=== PATIENT | male | born 1990 ===

== ENCOUNTER 2021-09-09 14:24 | Emergency (ER) | payer OTHER, SELFPAY ==
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
[2021-09-09 14:36] VITALS: BP 143/91; PULSE 114; RESP 14; TEMP 36.9; O2SAT 99
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
[2021-09-09] MEDS: IBUPROFEN 600 MG TABLET PO (17:02)
== END 2021-09-09 17:58 | disposition home or self-care (01) ==
LOC: ANHED 17:50
PROVIDERS: Emergency Provider Emergency Medicine; PCP Family Medicine
DX: S16.1XXA Strain of muscle, fascia and tendon at neck level, initial encounter (principal); S00.93XA Contusion of unspecified part of head, initial encounter; V49.40XA Driver injured in collision with unspecified motor vehicles in traffic accident, initial encounter
CPT/HCPCS: 70450; 72125; 99284; A9270

== ENCOUNTER 2021-10-18 17:18 | Emergency (ER) | payer OTHER, SELFPAY ==
[2021-10-18 17:29] VITALS: BP 155/89; PULSE 86; RESP 16; TEMP 36.9; O2SAT 100
--- NOTE | 2021-10-18 17:35 | ED.SKABFB ---
HPI - Skin/Abscess/Foreign Bdy General Chief complaint: Skin/Abscess/Foreign Body Stated complaint: Lip Pain Time Seen by Provider: 10/18/21 17:32 Source: patient, RN notes reviewed and old records reviewed Mode of arrival: ambulatory Limitations: no limitations History of Present Illness HPI narrative: 30-year-old male presents to the [facility] with a left lower lip swelling. States he bit his lip a couple weeks ago thought it was getting better but his gradually gotten worse. No treatment prior to arrival Related Data Home Medications Medication Instructions Recorded Confirmed bupropion HCl 300 mg PO DAILY 10/18/21 10/18/21 buspirone 15 mg PO DAILY 10/18/21 10/18/21 clonidine HCl 0.1 mg PO DAILY 10/18/21 10/18/21 lamotrigine 150 mg PO DAILY 10/18/21 10/18/21 sertraline 100 mg PO DAILY 10/18/21 10/18/21 Allergies Allergy/AdvReac Type Severity Reaction Status Date / Time No Known Allergies Allergy Verified 10/18/21 17:35 Review of Systems Review of Systems: All systems reviewed & are unremarkable except as noted in HPI and below Constitutional: Constitutional: Reports no additional constitutional complaints, Denies chills and Denies fever(s) Eyes: Eyes: Reports no additional eye complaints ENT: Reports as per HPI Comments: Swollen bottom lip Cardiovascular: Cardiovascular: Reports no additional cardiovascular complaints Respiratory: Respiratory: Reports no additional respiratory complaints Gastrointestinal: Gastrointestinal: Reports no additional gastrointestinal complaints Musculoskeletal: Musculoskeletal: Reports no additional musculoskeletal complaints Integumentary/Breasts: Skin/Breast: Reports system reviewed and no additional complaints, except as docu Neurologic: Reports system reviewed and no additional complaints, except as documented Psychiatric: Psychiatric: Reports no additional psychiatric complaints Allergic/Immunologic: Allergic/Immunologic: Reports no additional allergic/immunologic complaints [facility] Past Medical History Medical History Patient denies significant medical history Social History Social History Smoking status: Never smoker Comments At the time of my signature, I reviewed and agree with the nursing past medical, surgical, social, and family history. There is no relevant family history pertinent to the patient complaint. Exam Const: General: healthy appearing, no acute distress and alert Nutritional Appearance: well nourished Orientation/consciousness: patient oriented x3 Limitations: no limitations HENMT: Head: normal to inspection Ears: external ears normal, TM's normal bilaterally and EAC's normal Nose image: 1. Inside bottom lip, ulceration noted, discoloration, redness and swelling noted Mouth: Yes oropharynx normal Throat: posterior oropharynx normal Eyes: Pupils: Equal, round and reactive pupils present Neck: Neck: normal visual inspection, no lymphadenopathy and no meningeal signs Chest: Chest palpation & inspection: normal inspection of the chest Resp: Effort & Inspection: normal respiratory effort and no use of accessory muscles Auscultation: clear to auscultation bilaterally, no crackles, no rales, no rhonchi and no wheezes Cardio: Rate: regular rate Rhythm: regular rhythm GI: GI Palp: Yes Soft to palpation and No Tenderness to palpation present (GI) Back/Spine/Pelvis: Back: no CVA tenderness Skin: General skin exam: normal color Rashes: no rashes Wounds: no wounds Neuro: General: patient oriented x3, moves all extremities, no meningeal signs and no focal motor deficits Cranial nerves: Yes Equal, round and reactive pupils present Speech: normal speech Gait exam (Neuro): Normal gait present Extrem: General: normal to inspection Psych: Appearance: grossly normal and well kempt Mental Status: mental status grossly normal Affect: n
== END 2021-10-18 17:40 | disposition home or self-care (01) ==
PROVIDERS: Emergency Provider Nurse Practitioner
DX: K12.0 Recurrent oral aphthae (principal); F41.9 Anxiety disorder, unspecified; F31.9 Bipolar disorder, unspecified
CPT/HCPCS: 99213; G0463

== ENCOUNTER 2023-12-10 10:17 | Emergency (ER) | payer OTHER, SELFPAY ==
--- NOTE | 2023-12-10 10:24 | ED.DENTAL ---
HPI - Dental/Oral General Chief complaint: Dental/Oral Stated complaint: pain in throat/left side of face after tooth pull Time Seen by Provider: 12/10/23 10:38 Source: patient Mode of arrival: ambulatory Limitations: no limitations History of Present Illness HPI Narrative: 33-year-old male presents with concern for swelling in his neck, under his tongue, dental pain, painful swallowing. Reports he had a left lower wisdom tooth removed 6 days ago, he was not placed on antibiotic at that time. He has had pain medicine, he took a dose last night. He is able to swallow his own secretions. He denies fever. MD Complaint: tooth pain Related Data Home Medications Medication Instructions Recorded Confirmed bupropion HCl 300 mg 24 hr tablet, 300 mg PO DAILY 10/18/21 12/10/23 extended release buspirone 15 mg tablet 15 mg PO DAILY 10/18/21 12/10/23 lamotrigine 150 mg tablet 150 mg PO DAILY 10/18/21 12/10/23 fluoxetine 10 mg capsule 10 mg PO DAILY 12/10/23 12/10/23 oxycodone-acetaminophen 5 mg-325 See Rx Instructions .Route .COMPLEX 12/10/23 12/10/23 mg tablet Allergies Allergy/AdvReac Type Severity Reaction Status Date / Time No Known Allergies Allergy Verified 12/10/23 11:13 Review of Systems Review of Systems: CONSTITUTIONAL: Denies malaise, chills, sweats, or fever. EYES: Denies visual changes ENT: Denies rhinorrhea, congestion, sinus pain, otalgia or sore throat. Reports dental pain, neck swelling, painful swallowing CARDIOVASCULAR: Denies chest pain, palpitations RESPIRATORY: Denies cough or dyspnea. SKIN: Denies rash or itching. MUSCULOSKELETAL: Denies myalgia. NEUROLOGIC: Denies numbness, weakness, or headache. All systems reviewed & are unremarkable except as noted in HPI and below PMFSH Past Medical History Medical History Patient denies significant medical history Social History Social History Smoking status: Never smoker Comments At time of signature, agree with nursing past medical, surgical, social and family history. There is no relevant family history pertinent to the presenting complaint Exam Narrative: GENERAL: Well-appearing, well-nourished, and in no acute distress. HEAD: Normocephalic, atraumatic. EYES: PERRLA, sclera clear ENT: Nares clear, turbinates pink, no rhinorrhea or epistaxis. Mucous membranes moist. TM pearly bowles with sharp light reflex bilaterally; no tragal tenderness. Oropharynx without erythema or lesions. Tonsils not enlarged and without exudate. Neck swelling noted, sublingual firm edema noted NECK: Edematous CHEST: No respiratory distress. Speaks in full sentences. HEART: Regular rate and rhythm. SKIN: Warm, dry, no visible rash. NEURO: Alert and oriented x3. PSYCH: Normal mood and affect Course Course Emergency Course: Patient is aware of, understands and agrees to be transferred to the emergency room. Patient agrees to proceed directly to the emergency department, a family member's driving him, he refuses EMS Portions of this record may have been created with voice recognition software Level of Care: Express Care Visit Vital Signs Vital signs: Reviewed. Transfer Transfered to: [place] Transportation: Other (private vehicle) Transfer rationale: Swollen neck, sublingual space Accepting physician: [place] MDM - Dental/Oral MDM Narrative Medical decision making narrative: Exam findings for further evaluation emergency room; patient is non-toxic appearing and is in no distress. Differential Diagnosis Differential diagnosis: Likely gingival abscess, dental caries, toothache, dental abscess, fracture of tooth and aphthous ulcer Critical Care Time Critical Care Time Critical Care Time: No Discharge Plan Discharge Clinical Impression: Swelling Patient Disposition: Acute Care Hospital Condition: Stable Patient Language: E
[2023-12-10 10:28] VITALS: BP 140/92; PULSE 114; RESP 16; TEMP 37.1; O2SAT 99
== END 2023-12-10 10:53 | disposition short-term general hospital (02) ==
PROVIDERS: Emergency Provider Nurse Practitioner
DX: R22.0 Localized swelling, mass and lump, head (principal); R22.1 Localized swelling, mass and lump, neck
CPT/HCPCS: 99212; G0463

== ENCOUNTER 2023-12-10 11:12 | Emergency (ER) | payer OTHER, SELFPAY ==
--- NOTE | ~2023-12-10 | CT_ITS ---
EXAMINATION: CT soft tissue neck w con DATE: 12/10/2023 12:54 INDICATION: Submandibular swelling. [place] teeth removal. TECHNIQUE: Computed tomography (CT) of the neck was performed with 75 mL Omnipaque-350 intravenous co ntrast. Automated exposure control and iterative reconstruction technique were employed. The dose-bozena gth product was 534.50 mGy-cm. COMPARISON: None FINDINGS: There is mild bilateral high internal jugular chain lymphadenopathy and mild left submandib ular chain lymphadenopathy. There is mild bilateral subpectoral lymphadenopathy. There is soft tissue swelling in left lower face. The palatine tonsils and epiglottis are normal. The paranasal sinuses a re clear. The mastoid air cells are normal. There has been removal of bilateral mandibular molars. IMPRESSION: 1. Left lower face soft tissue swelling status post extraction of teeth. No abscess. 2. Mild bilateral cervical lymphadenopathy and chest lymphadenopathy, likely reactive. Reviewed, dictated and finalized at location E. IMPRESSION: 1. Left lower face soft tissue swelling status post extraction of teeth. No abs cess. 2. Mild bilateral cervical lymphadenopathy and chest lymphadenopathy, likely re active.
[2023-12-10 11:28] VITALS: BP 148/84; PULSE 109; RESP 18; TEMP 36.3; O2SAT 98
--- NOTE | 2023-12-10 11:37 | ED.DENTAL ---
HPI - Dental/Oral General Chief complaint: Dental/Oral Stated complaint: dental pain, neck swelling Time Seen by Provider: 12/10/23 11:35 Source: patient Mode of arrival: ambulatory Limitations: no limitations History of Present Illness HPI Narrative: Sudhakar is a 33-year-old male patient presenting to the emergency room today with complaints of submandibular neck swelling and difficulty swallowing/sore throat. Reports symptoms started yesterday. Had the wisdom tooth cut out on Monday. He denies any fever, chills, or body aches. He denies any tongue swelling, shortness of breath, or chest pain. No drooling noted Related Data Home Medications Medication Instructions Recorded Confirmed bupropion HCl 300 mg 24 hr tablet, 300 mg PO DAILY 10/18/21 12/10/23 extended release buspirone 15 mg tablet 15 mg PO DAILY 10/18/21 12/10/23 lamotrigine 150 mg tablet 150 mg PO DAILY 10/18/21 12/10/23 fluoxetine 10 mg capsule 10 mg PO DAILY 12/10/23 12/10/23 oxycodone-acetaminophen 5 mg-325 See Rx Instructions .Route .COMPLEX 12/10/23 12/10/23 mg tablet Allergies Allergy/AdvReac Type Severity Reaction Status Date / Time No Known Allergies Allergy Verified 12/10/23 11:13 Review of Systems Review of Systems: Pertinent positives per HPI. Patient denies any fever, chills, rash, headache, visual changes, dizziness, cough, shortness of breath, chest pain, palpitations, nausea, vomiting, diarrhea, constipation, abdominal pain, or any urinary issues. PMFSH Past Medical History Medical History Patient denies significant medical history Social History Social History Smoking status: Never smoker Comments At the time of my signature, I reviewed and agree with the nursing past medical, surgical, social, and family history. There is no relevant family history pertinent to the patient complaint. Exam Narrative: General: Well-developed, well nourished, in no apparent distress Head: Normocephalic, atraumatic Eyes: Pupils equally round and reactive to light bilaterally, EOM intact, sclera and conjunctive clear, no discharge, lids normal Ears: TMs intact and clear, ear canals clear, no drainage, grossly hearing normal. Nose: Nares patent, no discharge, no inflammation, no sinus tenderness. Mouth: Oral pharynx mildly red without lesions or masses, poor dentition, MMM. Neck: Supple, trachea midline, tender to palpation over the submandibular lymph nodes, no enlargement of anterior or posterior cervical nodes, no thyroid masses or goiter palpable. Cardio: Regular rate and rhythm, s1 and s2 normal, no murmur appreciated. Resp: Clear to auscultation bilaterally, no rhonchi, rales, wheezing or rubs Course Course Emergency Course: Portions of this record may have been created with voice recognition software. Vital Signs Vital signs: Vital Signs Temperature 36.3 C L 12/10/23 11:28 Pulse Rate 109 H 12/10/23 11:28 Respiratory Rate 18 12/10/23 11:28 Blood Pressure 148/84 H 12/10/23 11:28 Pulse Oximetry 98 12/10/23 11:28 Oxygen Delivery Room Air 12/10/23 11:28 Temperature 36.3 C L 12/10/23 11:28 Pulse Rate 95 12/10/23 11:40 Respiratory Rate 16 12/10/23 11:40 Blood Pressure 131/96 H 12/10/23 11:40 Pulse Oximetry 96 12/10/23 11:40 Oxygen Delivery Room Air 12/10/23 11:28 Vital signs reviewed MDM - Dental/Oral MDM Narrative Medical decision making narrative: At the time of visit patient is resting comfortably on the exam table. Patient appears to be nontoxic. Labs: CBC shows white blood cell count of 8.8, H&H is 13.4 and 39.5, platelet count is 191, chemistry shows sodium level 137, potassium of 4.0, chloride 99, CO2 28, BUN of 11, creatinine 0.9, GFR greater than 60, glucose is 122, liver function test within normal limits, strep PCR test was negative. Diagno
[2023-12-10 11:40] VITALS: BP 131/96; PULSE 95; RESP 16; O2SAT 96
[2023-12-10 11:55] LABS: Basophils Percent Auto 0.1 % (0.2-1.2); Hematocrit 39.5 % (42.0-52.0); Hemoglobin 13.4 g/dL (14.0-18.0); Immature Granulocyte Absolute 0.04 K/mm3 (0.00-0.031); Immature Granulocyte Percent A 0.5 % (0-0.5); Lymphocytes Absolute Auto 1.24 K/mm3 (0.9-3.2); Mean Corpuscular HGB Conc 33.9 g/dl (32-36); Mean Corpuscular Hemoglobin 29.5 pg (26-34); Mean Corpuscular Volume 86.8 fl (80-100); Monocytes Absolute Auto 0.6 K/mm3 (0.1-0.6); Monocytes Percent Auto 6.6 % (2.6-8.5); Neutrophils Percent Auto 78.8 % (45.5-73.1); Platelet Count Result 191 k/mm3 (150-375); Red Blood Count 4.55 M/mm3 (4.6-6.20); Red Cell Distribution Width 12.9 % (11.5-14.5); White Blood Count 8.8 K/mm3 (4.5-10.0)
[2023-12-10 12:06] LABS: Alanine Aminotransferase 23 U/L (6-50); Albumin Level 4.5 g/dL (3.5-5.1); Alkaline Phosphatase 90 U/L (38-126); Anion Gap 10 mmol/L (8-16); Aspartate Amino Transferase 24 U/L (17-59); Bilirubin,Total 1.3 mg/dL (0.2-1.3); Blood Urea Nitrogen 11 mg/dL (9-20); Calcium 9.4 mg/dL (8.4-10.2); Carbon Dioxide 28 mmol/L (22-30); Chloride 99 mmol/L (98-107); Estimated CRCL calculation 108 ml/min; Estimated Glomerular Filt Rate > 60; Glucose 122 mg/dL (65-110); Sodium 137 mmol/L (137-145)
[2023-12-10 12:23] LABS: Strep Group A RT-PCR NOT DETECTED (Negative)
[2023-12-10 14:35] VITALS: BP 143/98; PULSE 93; RESP 16; TEMP 36.6; O2SAT 100
== END 2023-12-10 14:36 | disposition home or self-care (01) ==
PROVIDERS: Emergency Provider Nurse Practitioner Family
DX: I88.9 Nonspecific lymphadenitis, unspecified (principal); Z98.818 Other dental procedure status
CPT/HCPCS: 36415; 70491; 80053; 85025; 87651; 99284; Q9967